=== PATIENT | female | born 1985 | race American Indian/Alaskan Native ===

== ENCOUNTER 2016-10-13 23:40 | Emergency (ER) | payer OTHER ==
[2016-10-13 23:50] VITALS: BP 132/81
[2016-10-14 00:32] LABS: Basophils % (Auto) 0.7 % (0.0-1.8); Eosinophils % (Auto) 0.5 % (0.0-4.3); Hematocrit 39.5 % (30.3-42.9); Hemoglobin 12.8 gm/dl (10.1-14.3); Mean Corpuscular HGB Conc 33 % (30-34); Mean Corpuscular Hemoglobin 27 pg (28-32); Mean Corpuscular Volume 82 fl (79-97); Platelet Count 269 K/mm3 (140-440); Red Blood Count 4.82 M/mm3 (3.65-5.03); Red Cell Distribution Width 14.1 % (13.2-15.2); White Blood Count 9.3 K/mm3 (4.5-11.0)
[2016-10-14 00:46] LABS: INR 1.25 (0.87-1.13); Partial Thromboplastin Time 30.3 Sec. (24.2-36.6)
[2016-10-14 00:51] LABS: Anion Gap 25 mmol/L; BUN/Creatinine Ratio 12.85; Blood Urea Nitrogen 9 mg/dL (7-17); Calcium 9.1 mg/dL (8.4-10.2); Carbon Dioxide 22 mmol/L (22-30); Chloride 96.9 mmol/L (98-107); Glucose 121 mg/dL (65-100); Sodium 140 mmol/L (137-145)
[2016-10-14] MEDS ORDERED: ZOFRAN IV ONE (01:42)
--- NOTE | 2016-10-15 00:59 | ED Elopement Review ---
ED Pt Elopement review - Results review Lab results: Laboratory Tests 10/14/16 10/14/16 10/14/16 00:20 00:20 00:20 WBC 9.3 RBC 4.82 Hgb 12.8 Hct 39.5 MCV 82 MCH 27 L MCHC 33 RDW 14.1 Plt Count 269 Lymph % (Auto) 14.5 [place] % (Auto) 4.2 Eos % (Auto) 0.5 Baso % (Auto) 0.7 Lymph # 1.3 [place] # 0.4 Eos # 0.0 Baso # 0.1 Seg Neutrophils % 80.1 H Seg Neutrophils # 7.4 PT 15.6 H INR 1.25 H APTT 30.3 Sodium 140 Potassium 4.0 Chloride 96.9 L Carbon Dioxide 22 BUN 9 Creatinine 0.7 Estimated GFR > 60 BUN/Creatinine Ratio 12.85 Glucose 121 H Calcium 9.1 Troponin T < 0.010 10/14/16 03:31 WBC RBC Hgb Hct MCV MCH MCHC RDW Plt Count Lymph % (Auto) [place] % (Auto) Eos % (Auto) Baso % (Auto) Lymph # [place] # Eos # Baso # Seg Neutrophils % Seg Neutrophils # PT INR APTT Sodium Potassium Chloride Carbon Dioxide BUN Creatinine Estimated GFR BUN/Creatinine Ratio Glucose Calcium Troponin T < 0.010 - Call Back decision Pt Call Back Decision: Pt to F/U with PMD
== END 2016-10-14 04:00 | disposition left against medical advice (07) ==
LOC: ED 23:40
DX: R07.81 Pleurodynia (principal); R11.10 Vomiting, unspecified; Z53.21 Procedure and treatment not carried out due to patient leaving prior to being seen by health care provider
CPT/HCPCS: 36415; 80048; 84484; 85025; 85610; 85730; 93005; 93010; 96374; J2405